=== PATIENT | female | born 1975 | race Caucasian/White ===

== ENCOUNTER 2020-10-06 05:20 | Emergency (ER) | payer SELFPAY ==
[2020-10-06 07:02] LABS: Absolute Lymphocytes (CBC) 1.9 K/uL (0.7-4.9); Basophils % 1.2 % (0-1.3); Lymphocytes % 31.3 % (15.3-44.8); MPV 7.5 fL (7.6-11.3); RBC Red Blood Cell Count 4.47 M/uL (3.86-4.86)
[2020-10-06] MEDS ORDERED: LORazepam 2 MG/ML VIAL ONE (07:04)
[2020-10-06 09:33] LABS: Protime INR 0.91
[2020-10-06 09:44] LABS: ALT/SGPT 23 U/L (12-78); AST/SGOT 16 U/L (15-37); Albumin 3.6 g/dL (3.4-5.0); Alkaline Phosphatase 86 U/L (45-117); BUN Blood Urea Nitrogen 6 mg/dL (7-18); Bicarbonate 21 mmol/L (21-32); Bilirubin Direct < 0.1 mg/dL (0-0.2); Bilirubin Total 0.2 mg/dL (0.2-1.0); Glucose Level 184 mg/dL (74-106); Potassium 3.2 mmol/L (3.5-5.1); Protein, Total 7.3 g/dL (6.4-8.2); Sodium Level 142 mmol/L (136-145)
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
[2020-10-06 13:31] LABS: Urine Blood Trace-lysed (Negative); Urine Glucose Negative (Negative); Urine Protein 1+ (Negative)
[2020-10-06 13:53] LABS: Barbiturates NEGATIVE (NEGATIVE); Benzodiazepines NEGATIVE (NEGATIVE); Cocaine NEGATIVE (NEGATIVE); METHAMPHETAM NEGATIVE (NEGATIVE); Methadone NEGATIVE (NEGATIVE); Opiates NEGATIVE (NEGATIVE); Phencyclidine NEGATIVE (NEGATIVE); THC Cannibis POSITIVE (NEGATIVE)
[2020-10-06] MEDS ORDERED: NA CHLORIDE 0.9% 1,000 ML ONE (15:10)
[2020-10-06 19:25] VITALS: TEMP 98.3
[2020-10-06 19:36] VITALS: O2SAT 98
[2020-10-06 19:38] VITALS: BP 105/87
--- NOTE | 2020-10-07 07:53 | EKG ---
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
== END 2020-10-06 18:38 | disposition home or self-care (01) ==
LOC: ER 05:20
DX: F10.10 Alcohol abuse, uncomplicated (principal); F06.31 Mood disorder due to known physiological condition with depressive features; F17.210 Nicotine dependence, cigarettes, uncomplicated; K90.0 Celiac disease; R45.851 Suicidal ideations; F41.9 Anxiety disorder, unspecified; Z20.822 Contact with and (suspected) exposure to COVID-19
CPT/HCPCS: 36415; 80048; 80076; 80307; 80320; 80329; 81003; 85025; 85610; 85730; 93005; 96374; 99284; J7030; U0003